=== PATIENT | female | born 1945 | race Caucasian/White ===

== ENCOUNTER 2016-11-26 21:55 | Inpatient (IN) | payer MEDICARE, OTHER ==
[~2016-11-26] VITALS: Ht 160 cm; Wt 72.4 kg
--- NOTE | ~2016-11-26 | ECH ---
Transthoracic Echocardiography Report (TTE) Demographics Patient Name IRENE CARO Date of Study 11/28/2016 Patient Number [id number] Visit Number [id number] Date of 1945 Room Number 424 Accession Number [id number] Gender Female Age 71 year(s) Referring Thony Duvall MD Gravity Prospecting Operator Darlene Rene Physician Obi Ahn MD [facility] Physician Interpreting Thony Duvall MD Welding Equipment Sales Representative Physician Supervising Ordering Physician Obi Ahn MD, MD[facility] Nurse Stress Development Manager Conclusions Summary Technically adequate exam. The estimated left ventricular ejection fraction is 60%. There appears to be a tiny perimembranous ventricular septal defect. Trivial tricuspid regurgitation by color Doppler. There is mild pulmonary hypertension. The pulmonary pressure (RVSP) is 36 mmHg. Procedure Type of Study TTE procedure:Echo Complete SF. Procedure Date Date: 11/28/2016 Start: 09:02 AM Technical Quality: Adequate visualization Indications:Elevated Troponin, Hypertension and Diabetes. Height: 63 inches Weight: 159 pounds BSA: 1.75 m Rhythm: Within normal limits HR: 66 bpm BP: 164/76 mmHg M-Mode/2D Measurements LV Diastolic Dimension: 5 cm LV Systolic Dimension: 2.8 cm LV Septum Diastolic: 0.71 cm LV PW Diastolic: 0.68 cm AO Root Dimension: 2.73 cm Cardiac Output: 5.86 l/min LA Dimension: 3.05 cm Cardiac Index: 3.35 l/min*m RV Diastolic Dimension: 4.11 cm LA volume index: 20 ml/m LVOT: 2.09 cm LVOT VTI: 25.9 cm RV Base: 3 cm LV Stroke volume: 88.81 ml RV Mid: 2 cm LV Stroke volume index: 50.75 ml/m TAPSE: 2.2 cm TDI-S': 15 cm/s Doppler Measurements AV Peak Velocity: 1.22 m/s MV Peak E-Wave: 1.1 m/s AV Peak Gradient: 5.94 mmHg MV Peak A-Wave: 0.94 m/s AV Mean Gradient: 2.5 mmHg MV E/A Ratio: 1.17 LVOT Peak Velocity: 0.95 m/s AV Area (Continuity):2.76 cm MV Deceleration Time: 250 msec TR Velocity:2.77 m/s PV Peak Velocity: 0.82 m/s TR Gradient:30.69 mmHg PV Peak Gradient: 2.67 mmHg Estimated RAP:5 mmHg Estimated PASP: 35.69 mmHg Estimated RVSP: 36 mmHg RA Area: 9.79 cm Findings Left Ventricle Normal left ventricle size and function. Diastolic assessment reveals normal relaxation. There appears to be a tiny perimembranous ventricular septal defect. Right Ventricle Normal right ventricle structure and function. Left Atrium Normal left atrial size. Right Atrium Normal right atrial size. Mitral Valve Normal mitral valve structure and function. Mild mitral regurgitation by color Doppler. Aortic Valve Normal aortic valve structure and function. Tricuspid Valve Normal tricuspid valve structure and function. Trivial tricuspid regurgitation by color Doppler. There is mild pulmonary hypertension. The pulmonary pressure (RVSP) is 36 mmHg. Pulmonic Valve The pulmonic valve is not well visualized. Pericardial Effusion No evidence of pericardial effusion. Miscellaneous Visualized portions of the aortic root and ascending aorta appear normal in size. Suboptimal subcostal window to evaluate the IVC and interatrial septum. Pleural Effusion No evidence of pleural effusion. Signature
--- NOTE | ~2016-11-26 | CST ---
Cardiac Perfusion Imaging Demographics Patient Name GORDO Pizarro Gender Female Patient Number [id number] Race Visit Number [id number] Ethnicity Corporate ID Room Number 424 Accession Number [id number] Height 63 inches Date of 1945 Weight 159 pounds Age 71 year(s) BSA 1.75 m Referring Physician Doron Ambrosio BMI 28.17 kg/m Interpreting [facility] Date of study 11/29/2016 Physician Thony Duvall MD Supervising MD/MLP Thony Duvall MD NM Technologist Chano Tao, [facility] Ordering Physician Thony Duvall MD Stress Sofia Harris explosive ordnance disposal technician Stress ECG Reading [facility] Nurse Neli Belcher Physician Thony Vivas The procedure was explained in detail to the patient. Risks, complications and alternative treatments were reviewed. Written consent was obtained. Medications Reviewed with Patient prior to Procedure. Procedure Procedure Type: Nuclear Stress Test:Pharmacological, Cardiac Study SF Procedure Start time: 11/29/2016 08:00 Indications: Chest discomfort, Hypertension and Diabetes. Risk Factors The patient risk factors include:former tobacco use, treated hypercholesterolemia, family history of premature CAD, diet treated diabetes mellitus and chronic lung disease. Conclusions Summary Perfusion Images: The overall quality of the study is good. Left ventricular cavity is noted to be normal on the stress and rest studies. There is no evidence of abnormal lung activity. The right ventricle is not visualized and cannot be assessed. Stress SPECT images demonstrate homogenous tracer distribution throughout the myocardium. Rest SPECT images demonstrate homogenous tracer distribution throughout the myocardium. Gated SPECT imaging reveals normal myocardial thickening and wall motion. The left ventricular ejection fraction was calculated to be 69%. Impression ECG portion of stress test is clinically negative for ischemia by diagnostic criteria. Myocardial perfusion imaging is normal. Overall left ventricular systolic function was normal without regional wall motion abnormalities. There are no previous studies for comparison. Stress Protocols Resting ECG Normal sinus rhythm. Resting HR:54 bpm Resting BP:184/92 mmHg Stress Protocol:Pharmacologic Predicted HR: 151 bpm Test duration: 06:00 min Reason for termination:Infusion complete ECG Findings No ECG changes suggestive of ischemia. Arrhythmias No rhythm abnormality. Symptoms Dyspnea. Chest pressure @ 5/10 during infusion. Gas pains, like the pain that brought her in to ED, MD brock. Symptoms resolved before patient left the stress room. Complications Procedure complication: None. Stress Interpretation Appropriate hemodynamic response to Lexiscan. No significant ST-T wave changes with Lexiscan. ECG portion is negative for ischemia by diagnostic criteria. Imaging Results Summed scores - Summed stress score: 0 - Summed rest score: 0 - Summed difference score: 0 Stress ejection Ejection fraction:68 % EDV :75 ml ESV :24 ml Stroke volume :51 ml LV mass :112 gr Imaging Protocols Rest Stress Isotope:Tc99m Myoview IV Isotope: Tc99m Myoview IV Isotope dose:10.5 mCi Isotope dose:31.6 mCi Date:11/29/2016 06:45 Date:11/29/2016 08:00 Technique: SPECT Technique: Gated Supine SPECT Supine IV remains in place after procedure. Scan Time:30 minutes post injection Scan Time:15-30 minutes post injection Procedure Medications - Regadenoson (Lexiscan) 0.4 mg IV over 10-15 sec. I.V. 0.4 mg. Medications administered per verbal order and read back to physician prior to administration. Medical History Admission Data Admission date: 11/26/2016 Admission Time: 23:52 Hospital Status: Inpatient. Signatures
[~2016-11-26 21:55] MED LIST: BACITRACIN15 GM TP; CEFTIN250 MG PO; COLACE100 MG PO; FLONASE 0.05% D16 GM NS; LISINOPRIL20 MG PO; MICRO-K DPS10 MEQ PO; MILK OF MAGNESI10 ML PO; MUCINEX600 MG PO; NEURONTIN DPS300 MG PO; PREMARIN0.625 MG PO; PROVENTIL HFA6.7 GM IH; TYLENOL #3 DPS1 TAB PO; VITAMIN D31000 UNIT PO; ZANTAC150 MG PO; ZYRTEC10 MG PO
--- NOTE | 2016-11-29 07:42 | ER ---
ADMIT: 11/26/2016 RM/LOC: ER [facility] MR#: [id number] [address] [address] IRENE CARO [place], [place] [address] Emergency Room Report SEX: F AGE: 71 : 1945 DATE: 11/26/2016 TIME: 2155 hours. Please refer to my T-sheet for complete H and P. HISTORY OF PRESENT ILLNESS: Briefly, the patient is a 71-year-old, who comes in with epigastric chest pain to her back, very anxious, nausea. She has had problems with reflux, irritable bowel, hiatal hernia. She has diabetes, high blood pressure. She has chronic back pain. She says it was severe. She does not feel short of breath. It is kind of a cramping pain, comes and goes. PHYSICAL EXAMINATION: VITAL SIGNS: Blood pressure 190/92, pulse 79, respirations 16, temp 97.6, saturating 96%. GENERAL: She is anxious. HEENT: Grossly normal. LUNGS: Trace wheeze. HEART: Regular. No murmur. ABDOMEN: Tender in the epigastric. No rebound or guarding. SKIN: No rash. EXTREMITIES: Pulses are symmetrical. EMERGENCY DEPARTMENT COURSE: I did a CT scan of the abdomen and pelvis, revealed distended gallbladder, otherwise negative. Chest x-ray, no acute disease. CBC normal. Chemistries normal except glucose 115. Her troponin was slightly elevated at 0.06. EKG was sinus rhythm, rate 78. I repeated the EKG, it was sinus rhythm, rate 72, neither of which had either any changes. We gave her Ativan 0.5 mg IV, 0.5 mg of Dilaudid IV, Zofran 4 mg IV, Protonix, a GI cocktail, we held the nitroglycerin, 4 aspirin, her pain was finally resolved. ASSESSMENT: 1. Epigastric abdominal pain. 2. Chest pain. 3. Elevated troponin. 4. Distended gallbladder. PLAN: Admit to the hospital. Homero Clements MD/ jose JOB #: [id number] CC: Jesus Turner MD, Attending Physician Padmini Sal MD, Family Physician
[2016-11-30] MEDS ORDERED: PLAVIX75 MG PO (06:07)
[2016-11-30] MEDS ORDERED: LOPRESSOR DPS50 MG PO (06:07)
[2016-11-30] MEDS ORDERED: ASA CHILDREN'S81 MG PO (06:07)
--- NOTE | 2016-12-02 12:55 | HP ---
ADMIT: 11/26/2016 RM/LOC: 424 [facility] MR#: [id number] [address] [address] [place] [address] History and Physical SEX: F AGE: 71 : 1945 DATE OF SERVICE: CHIEF COMPLAINT: Epigastric discomfort and nausea. HISTORY OF PRESENT ILLNESS: The patient is a very pleasant, 71-year-old female with past medical history of GERD, hypertension, diabetes, and chronic back pain who presents to [facility] Emergency Room tonight with complaints of epigastric discomfort. The patient notes she had a very abrupt onset of discomfort starting over yesterday afternoon, very severe nature in her epigastrium with radiation to her back and around her chest. She felt a little nauseated but did not vomit. She did not feel short of breath. She had no palpitations fevers, chills, diaphoresis. The patient notes she has had this discomfort intermittently, maybe for a year but has been worse since Zeyad. It occurs intermittently always within a couple hours after meals. She does have a history of irritable bowel, is recently started on some Metamucil and feels like that has improved, her bowels moved last night normally at home. She has had no blood or melena. No urinary symptoms were noted. No medication changes are noted. With the severity of her discomfort, she had undergone CT scanning that showed distended gallbladder, no other major findings were noted. She was admitted for further evaluation and treatment. She does notice a lot of acid reflux symptoms lately and does have chronic back discomfort this morning. She denies any epigastric discomfort, but does have a little bit of lower abdominal cramping. PAST MEDICAL HISTORY: 1. History of retinal detachment. 2. History of vitamin D deficiency. 3. Diabetes. 4. Hypertension. 5. Lumbar spinal stenosis with spinal cord stimulator. 6. History of GERD/hiatal hernia/erosive gastritis and pyloric stenosis. 7. Low back pain with a prior operative interventions, laminectomy of lumbosacral spine. 8. Asthma. 9. Hyperlipidemia. 10.Questionable sacroiliitis. 11.Diverticulosis. 12.Status post left rotator cuff repair. 13.Status post hysterectomy with salpingo-oophorectomy. 14.Tonsillectomy and adenoidectomy. 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 16.History of carpal tunnel syndrome. 17.History of right breast lumpectomy. ALLERGIES: SHE HAS ALLERGIES TO CHANTIX, LIPITOR, AND BIAXIN. FAMILY HISTORY: Noncontributory at this time. SOCIAL HISTORY: Occasional drinker. She is . She smokes one pack per ADMIT: 11/26/2016 RM/LOC: 424 [facility] MR#: [id number] [address] [address] IRENE CARO [facility] [place] [address] History and Physical SEX: F AGE: 71 : 1945 day, quit within the last year or so. CURRENT HOME MEDICATIONS: Include: 1. Lisinopril. 2. Potassium. 3. Vitamin D. 4. Gabapentin. 5. Zyrtec. 6. Ranitidine. 7. Metamucil. REVIEW OF SYSTEMS: As noted above. All systems are reviewed and negative. PHYSICAL EXAMINATION: VITAL SIGNS: 96.8, 67, 16, 132/59, 97% on room air. GENERAL: This is an overweight female, appears her stated age. No apparent distress, but does appear anxious at times. HEENT: Head is normocephalic and atraumatic. Mucous membranes little dry. NECK: Supple. LUNGS: Clear. HEART: Regular. ABDOMEN: Soft. It is nondistended. She does have a little bit of epigastric tenderness, but negative Dickson sign is noted. She has good bowel sounds throughout. EXTREMITIES: She has good pulses. She has no significant edema is noted. NEUROLOGICAL: Cranial nerves are intact. No focal deficits are noted. LABORATORY AND X-RAY DATA: Lab work shows hemoglobin 12.9, white count 9.2, 222,000 platelets. Sodium 140, potassium 3.9, BUN 16, creatinine 1, AST 23, ALT 29, alkaline phosphatase 119, total bilirubin was 0.6. Troponin was 0.060 on admission and was 0.[address] scan showed distended gallbladder with no stones, normal ducts. There were no bowel issues noted. There is a small right inguinal hernia noted and there was colonic diverticulosis. Ultrasound of her abdomen is pending. Her EKG showed normal sinus rhythm at [address] or T-wave segment changes were noted. Urinalysis was within normal limits. ASSESSMENT AND PLAN: 1. Acute onset of epigastric pain. Question biliary colic versus peptic ulcer disease. 2. History of irritable bowel. 3. Mildly elevated troponin. 4. Hypertension. ADMIT: 11/26/2016 RM/LOC: 424 [facility] MR#: [id number] [address] [place] [id number] [place] [address] History and Physical SEX: F AGE: 71 : 1945 5. Diabetes mellitus type 2. 6. Hyperlipidemia. 7. Chronic back pain. At this point, the patient really is pain free. She has been n.p.o. We are waiting that ultrasound result. Plan antiemetics, pain medications, and IV fluids. She just felt a little hungry, so we will try some clears. We are going to plan on trending out her cardiac enzymes. Really does not sound ischemic in nature to me right now. She certainly does have a lot of risk factors, and she certainly will likely need stress testing, but right now the discomfort really seems more biliary colic to me. We will see what the ultrasound results look like and we will go from there. We will follow her closely as an inpatient. Norbert Crocker MD/ jose JOB #: [id number] CC: Padmini Sal, Attending Physician Padmini Sal, Family Physician
--- NOTE | 2017-01-09 15:03 | CO ---
ADMIT: 11/26/2016 RM/LOC: 424 [facility] MR#: [id number] [address] [address] IRENE [address]O [address] [place], [place] [address] Consultation SEX: F AGE: 71 : 1945 DATE OF CONSULTATION: 11/28/2016 ATTENDING PHYSICIAN: Padmini Sal CONSULTING PHYSICIAN: Brandan Bhandari MD REASON FOR CONSULTATION: Chest pain/abdominal pain/elevated troponin. HISTORY OF PRESENT ILLNESS: The patient is a pleasant 71-year-old, female with no known history of coronary artery disease. She is here with chest pain/abdominal pain and mildly-elevated troponin. She states her pain is similar to the prior GERD pain but more severe. Her blood pressure was also very high on admission. She states that the discomfort was right at her lower ribs. It was a severe discomfort that lasted for a couple of hours. This then resolved on its own. Since being here, she has only had slight episodes of discomfort, which reminded more of a heartburn, which has been relieved on their own. She has been up walking without any reproduction of the discomfort. Her peak troponin was 0.110 with peak MB of 4.0. SOCIAL HISTORY: She does have a history of tobacco abuse. She quit 2 years ago. She smoked 1-1/2 packs a day for approximately 50 years. She is . She is retired from working retail. She has 3 children. She drinks approximately 1 pot of coffee a day, 3-4 days a week. She drinks a glass of wine at night. She does not follow special diet, does not have a history of drug use or abuse. PAST MEDICAL HISTORY AND SURGICAL HISTORY: Three back surgeries, tonsillectomy, tubal ligation, hysterectomy, rotator cuff repair bilaterally, lumpectomy on her neck which was benign, carpal tunnel of her right hand. She also had a left breast lumpectomy, approximately 20 years ago, prediabetes, COPD, hypertension, cataracts. She wears corrective lenses, hard of hearing, GERD, hiatal hernia, and osteoarthritis. MEDICATIONS: She was taking include: 1. Neurontin 300 mg p.o. at bedtime. 2. Zestril 20 mg p.o. daily. 3. Pepcid. ALLERGIES: TO MORPHINE, DOXYCYCLINE, CLARITHROMYCIN, AND VARENICLINE. FAMILY HISTORY: Actually, she does not have a family history of heart disease. She does have a family history of cancer, lung cancer in her family. She also has a family history of stroke, dad when she was 10, and she has a sister who from complications of asthma. REVIEW OF SYSTEMS: GENERAL: Denies fatigue, fever, chills, sweats, or rash. She does tire easily, has no seizures this winter. She has gained 20-25 pounds and she quit smoking. EYES: She wears corrective lenses and does have cataracts which were not ADMIT: 11/26/2016 RM/LOC: 424 [facility] MR#: [id number] [facility] [address] [address] [place] [address] Consultation SEX: F AGE: 71 : 1945 ready to be removed. ENT: She has history of sinus trouble and is hard of hearing. PULMONARY: She has a diagnosis of COPD and makes it more than once at night, she is not sure if she is started in the a.m. GASTROINTESTINAL: She has heartburn, acid reflux, difficulty swallowing, has been diagnosed with hiatal hernia and had a cholecystectomy. GENITOURINARY: Denies dysuria, hematuria, nocturia, or kidney stones. Denies history of renal insufficiency or failure. She has history of UTIs in the past. MUSCULOSKELETAL: She has osteoarthritis muscle and joint aches and pains. Also, has spinal stenosis with a spinal cord stimulator. ENDOCRINE: Denies history of thyroid dysfunction or diabetes. HEMATOLOGIC: She has a history of a lumpectomy on the left breast 20 years ago. She states she has not needed any chemo or radiation. NEUROLOGIC: She has a history of Zimmerman's palsy and numbness and tingling in her hands. PSYCHIATRIC: Denies history of mental illness or feelings of depression. PHYSICAL EXAMINATION: Per Dr. Bhandari, VITAL SIGNS: Temp 96.8, pulse 57, respirations 16, blood pressure 164/76, O2 saturation 95%. SKIN: [place], warm and dry. EYES: Sclerae clear. No xanthelasmas. ENT: Oral mucosa is pink and moist. No jugular venous distention or carotid bruits. CHEST: Respirations are even and unlabored. Lungs are clear to auscultation. HEART: Regular rate and rhythm. Normal S1, S2. No murmurs, rubs or gallops. ABDOMEN: Soft and nontender. MUSCULOSKELETAL: Gait is normal. EXTREMITIES: Peripheral pulses palpable. No clubbing, cyanosis or edema. PSYCHIATRIC: Alert and oriented. Mood and affect are appropriate. DIAGNOSTICS: Sodium of 143, potassium 3.9, chloride 111, carbon dioxide 24, BUN of 9, glucose 93, creatinine 0.7, magnesium of 2.0. White blood count of 5.2 with red blood count of 4.01, hemoglobin 11.6, hematocrit of 35.5 with platelet count of 167. Ultrasound of the abdomen showed hepatomegaly with fatty infiltrate of the liver, small approximately 8 mm gallbladder polyp versus small sludge ball. No cholelithiasis or acute cholecystitis. CT scan of the abdomen shows no acute abdominal pelvic abnormality identified, diverticulosis without diverticulitis, distended gallbladder. Chest x-ray no acute cardiopulmonary process. Cardiac enzymes, CKs have been normal. MB of 3.7 and 4.0 with the highest troponin of 0.060, 0.110, and 0.074. ASSESSMENT: Per Dr. Bhandari, 1. Chest pain. 2. Abnormal troponin. 3. Gastroesophageal reflux disease. 4. History of tobacco abuse. ADMIT: 11/26/2016 RM/LOC: 424 [facility] MR#: [id number] [address] [address] [place] [address] Consultation SEX: F AGE: 71 : 1945 5. Hypertension. PLAN: Per Dr. Bhandari, her signs and symptoms are suspicious for acute coronary syndrome but per her history, this is a severe GERD. I would recommend rechecking an echocardiogram to assess left ventricular function and to assess for any valvular abnormalities. If this is normal, we will do a stress test in the morning. If he has decreased EF or wall motion abnormalities, we will consider diagnostic left heart catheterization. We will continue to monitor her symptoms and diagnostics, amend our plan accordingly. Thank you for allowing us to participate in the care of this patient. ALEJANDRO Islas / Brandan Bhandari MD / jose JOB #: [id number] CC: Padmini Sal, Attending Physician Padmini Sal, Family Physician
--- NOTE | 2017-01-17 21:20 | DS ---
ADMIT: 11/26/2016 RM/LOC: 424 [facility] MR#: [id number] [facility] [address] [address] [place] [address] Discharge Summary SEX: F AGE: 71 : 1945 ADMISSION DATE: 11/26/2016 DISCHARGE DATE: 11/29/2016 DIAGNOSES: 1. Epigastric pain. 2. Elevated troponin. 3. Hypertension. 4. Hypokalemia. 5. Gastroesophageal reflux disease. 6. Diabetes. 7. Asthma. 8. Nausea. 9. Hyperlipidemia. 10.Gallbladder sludge. PROCEDURES: 1. Echo 11/28/2016. 2. Ultrasound of the abdomen 11/27/2016. REASON FOR HOSPITALIZATION: Nausea and epigastric pain. CONSULT: Cardiology. LABORATORY AND X-RAY DATA: White blood count 9.2, hemoglobin 11.6, platelet count 167, urine unremarkable see chart. Chemistry sodium 143, potassium 3.9, chloride 111, CO2 24, BUN 9, creatinine 0.7, cholesterol 165, triglycerides 173, calcium was 8.4, total bilirubin 1.2, total protein 6.2, albumin 3.5, alkaline phosphatase was 77. AST 19, ALT 21, magnesium 2, HDL 35, LDL 95. CK on 3 occasions were negative. Troponin went from 0.074 down to less than 0.015. Urine was unremarkable. CT abdomen and pelvis was nothing acute. Diffuse colonic diverticulosis was noted but no acute diverticulitis. Gallbladder was a little distended but otherwise was normal. No calcified stones are otherwise. Chest x-ray was nothing acute. Ultrasound of the ADMIT: 11/26/2016 RM/LOC: 424 [facility] MR#: [id number] [address] [address] JUDIT CARO [address] [place] [address] Discharge Summary SEX: F AGE: 71 : 1945 abdomen showed hepatomegaly and fatty liver with an 8 mm gallbladder polyp. Echocardiogram on 11/28/16 with ejection fraction 60% with a very tiny perimembranous ventricular septal defect and mild pulmonary hypertension with RVSP of 36. COURSE IN HOSPITAL: Judit was admitted through the emergency room with significant epigastric discomfort. When she presented to the emergency room labs were drawn, she was noted to have a slightly elevated troponin. She was admitted at this time for observation and evaluation. Ultrasound of the abdomen was ordered due to her symptoms. She was placed on telemetry. Liquid diet was given. Cardiology was asked to see. Echocardiogram was performed. Actually did not look too bad. Padmini Sal MD/ law JOB #: [id number] CC: Padmini Sal MD, Attending Physician Padmini Sal MD, Family Physician
[2017-06-04] MEDS ORDERED: ZESTRIL DPS20 MG PO (13:57)
[2017-06-04] MEDS ORDERED: ZANTAC DPS150 MG PO (13:58)
[2017-06-04] MEDS ORDERED: KLOR-CON 1010 MEQ PO (13:58)
[2017-06-04] MEDS ORDERED: VITAMIN D31000 UNIT PO (13:58)
[2017-06-04] MEDS ORDERED: ZYRTEC DPS10 MG PO (13:59)
[2017-06-04] MEDS ORDERED: PROAIR HFA8.5 GM IH (13:59)
[2017-06-04] MEDS ORDERED: NEURONTIN DPS300 MG PO (13:59)
[2017-06-04] MEDS ORDERED: NORVASC2.5 MG PO (14:00)
== END 2016-11-29 15:20 | disposition home or self-care (01) | DRG 392 ==
LOC: ER 21:55 → 4PCU 23:52
PROVIDERS: ADMIT Internal Medicine
DX: K21.9 Gastro-esophageal reflux disease without esophagitis (principal); J44.9 Chronic obstructive pulmonary disease, unspecified; K76.0 Fatty (change of) liver, not elsewhere classified; I10 Essential (primary) hypertension; M19.90 Unspecified osteoarthritis, unspecified site; F41.9 Anxiety disorder, unspecified; M48.06 Spinal stenosis, lumbar region; K58.9 Irritable bowel syndrome, unspecified; K57.90 Diverticulosis of intestine, part unspecified, without perforation or abscess without bleeding; K44.9 Diaphragmatic hernia without obstruction or gangrene; E11.9 Type 2 diabetes mellitus without complications; E55.9 Vitamin D deficiency, unspecified; J45.909 Unspecified asthma, uncomplicated; E78.5 Hyperlipidemia, unspecified; Z87.891 Personal history of nicotine dependence